=== PATIENT | female | born 1980 | race Caucasian/White ===

== ENCOUNTER 2021-06-08 12:06 | Inpatient (IN) | payer OTHER ==
[2021-06-08 16:30] VITALS: BMI 30.2
[2021-06-08] MEDS ORDERED: MAGNESIUM CITRATE 300 ML BOTTLE PO PRN (16:57)
[2021-06-08] MEDS ORDERED: MENTHOL/PHENOL 1 EACH UD MM PRN (16:57)
[2021-06-08] MEDS ORDERED: BISMUTH SUBSALICYLATE 524 MG/30 ML PO PRN (16:57)
[2021-06-08] MEDS ORDERED: IBUPROFEN 400 MG TABLET (FP) PO PRN (16:57)
[2021-06-08] MEDS ORDERED: MAG HYDROX/AL HYDROX/SIMETH 30 ML UNIT-DOSE CUP PO PRN (16:57)
[2021-06-08] MEDS ORDERED: ACETAMINOPHEN 325 MG TABLET (FP) PO PRN ×2 (16:57)
[2021-06-08] MEDS ORDERED: NALOXONE (NARCAN) HCL 4 MG/0.1 ML SPRAY NS PRN (16:57)
[2021-06-08] MEDS ORDERED: methaDONE HCL 10 MG TABLET (FOR DETOX USE ONLY) PO ONE (16:57)
[2021-06-08] MEDS ORDERED: MAGNESIUM HYDROX 2400MG/30ML ORAL SUSPENSION 30 ML CUP PO PRN (16:57)
[2021-06-08] MEDS ORDERED: NICOTINE 10 MG CARTRIDGE (INHALER) IH PRN (16:57)
[2021-06-08] MEDS ORDERED: methaDONE HCL 10 MG TABLET (FOR DETOX USE ONLY) ONE (18:18)
[2021-06-08] MEDS ORDERED: cloNIDine HCL 0.1 MG TABLET ONE (20:59)
[2021-06-08] MEDS: cloNIDine HCL 0.1 MG TABLET PO PRN (21:00)
[2021-06-08] MEDS: NICOTINE POLACRILEX 2 MG GUM BUC PRN (21:03)
[2021-06-08] MEDS ORDERED: MELATONIN 5 MG TABLETS PO SCH (22:00)
[2021-06-08] MEDS: THIAMINE HCL 100 MG TABLET (FP) PO SCH (23:37)
[2021-06-09] MEDS ORDERED: methaDONE HCL 10 MG TABLET (FOR DETOX USE ONLY) ONE (11:16)
[2021-06-09] MEDS: PRENATAL VITAMINS W/ FOLIC ACID TABLET (FP) PO SCH (11:18)
[2021-06-09] MEDS: METHOCARBAMOL 500 MG TABLET PO PRN ×2 (13:58→22:34)
[2021-06-09] MEDS: cloNIDine HCL 0.1 MG TABLET PO PRN ×3 (13:58→22:34)
[2021-06-09] MEDS: FLUoxetine HCL 20 MG CAPSULE PO SCH (14:22)
[2021-06-09] MEDS: lamoTRIgine 100 MG TABLET PO SCH (14:29)
[2021-06-09] MEDS: NICOTINE POLACRILEX 2 MG GUM BUC PRN (17:44)
[2021-06-09] MEDS: CLINDAMYCIN HCL 150 MG CAPSULE (FP) PO SCH ×2 (17:44→23:01)
[2021-06-09] MEDS: THIAMINE HCL 100 MG TABLET (FP) PO SCH (22:34)
[2021-06-09] MEDS: MELATONIN 5 MG TABLETS PO SCH (22:35)
[2021-06-10] MEDS: CLINDAMYCIN HCL 150 MG CAPSULE (FP) PO SCH ×4 (06:15→23:15)
[2021-06-10] MEDS: cloNIDine HCL 0.1 MG TABLET PO PRN ×3 (06:19→19:22)
[2021-06-10] MEDS ORDERED: methaDONE HCL 10 MG TABLET (FOR DETOX USE ONLY) PO ONE (10:00)
[2021-06-10 10:32] LABS: HEMATOCRIT 30.6 % (32.4-45.2); HEMOGLOBIN 10.1 GM/dL (10.7-15.3); MCH 26.1 pg (25.7-33.7); MCHC 32.9 g/dl (32.0-36.0); MEAN CELL VOLUME 79.4 fl (80-96); MEAN PLT VOLUME 8.4 fl (7.5-11.1); PLATELET COUNT 221 10^3/uL (134-434); RBC 3.86 M/mm3 (3.60-5.2); RDW 18.5 % (11.6-15.6); WHITE BLOOD COUNT 4.1 K/mm3 (4.0-10.0)
[2021-06-10 10:46] LABS: BLOOD UREA NITROGEN 13.4 mg/dL (7-18)
[2021-06-10] MEDS: PRENATAL VITAMINS W/ FOLIC ACID TABLET (FP) PO SCH (10:47)
[2021-06-10] MEDS: lamoTRIgine 100 MG TABLET PO SCH ×2 (10:48)
[2021-06-10] MEDS: FLUoxetine HCL 20 MG CAPSULE PO SCH (10:48)
[2021-06-10 10:49] LABS: ALBUMIN 3.1 g/dl (3.4-5.0)
[2021-06-10 10:52] LABS: CREATININE 0.7 mg/dL (0.55-1.3)
[2021-06-10 10:53] LABS: BILIRUBIN,TOTAL 0.3 mg/dL (0.2-1)
[2021-06-10] MEDS: NICOTINE POLACRILEX 2 MG GUM BUC PRN ×2 (13:47→19:22)
[2021-06-10] MEDS: THIAMINE HCL 100 MG TABLET (FP) PO SCH (23:15)
[2021-06-10] MEDS: MELATONIN 5 MG TABLETS PO SCH (23:15)
[2021-06-11] MEDS ORDERED: hydrOXYzine PAMOATE 25 MG CAPSULE (FP) PO ONE (02:05)
[2021-06-11] MEDS: CLINDAMYCIN HCL 150 MG CAPSULE (FP) PO SCH ×3 (06:46→16:59)
[2021-06-11] MEDS: METHOCARBAMOL 500 MG TABLET PO PRN (06:47)
[2021-06-11] MEDS ORDERED: methaDONE HCL 10 MG TABLET (FOR DETOX USE ONLY) ONE (09:12)
[2021-06-11] MEDS: PRENATAL VITAMINS W/ FOLIC ACID TABLET (FP) PO SCH (09:28)
[2021-06-11] MEDS: FLUoxetine HCL 20 MG CAPSULE PO SCH (09:29)
[2021-06-11] MEDS: lamoTRIgine 100 MG TABLET PO SCH (09:29)
[2021-06-11] MEDS: diazePAM 5 MG TABLET PO PRN ×3 (11:35→22:33)
[2021-06-11] MEDS ORDERED: cloNIDine HCL 0.1 MG TABLET PO PRN (18:41)
[2021-06-11] MEDS: MELATONIN 5 MG TABLETS PO SCH (22:33)
[2021-06-11] MEDS: THIAMINE HCL 100 MG TABLET (FP) PO SCH (22:33)
[2021-06-12] MEDS: CLINDAMYCIN HCL 150 MG CAPSULE (FP) PO SCH ×3 (01:28→11:52)
[2021-06-12] MEDS: METHOCARBAMOL 500 MG TABLET PO PRN ×2 (05:49→17:14)
[2021-06-12] MEDS ORDERED: methaDONE HCL 10 MG TABLET (FOR DETOX USE ONLY) PO ONE (10:00)
[2021-06-12] MEDS: PRENATAL VITAMINS W/ FOLIC ACID TABLET (FP) PO SCH (10:25)
[2021-06-12] MEDS: FLUoxetine HCL 20 MG CAPSULE PO SCH (10:26)
[2021-06-12] MEDS: lamoTRIgine 100 MG TABLET PO SCH (10:27)
[2021-06-12] MEDS ORDERED: JANSSEN COVID-19 VAC,AD26/PF 0.5 ML IM ONE (11:00)
[2021-06-12] MEDS: cloNIDine HCL 0.1 MG TABLET PO PRN ×2 (12:48→22:03)
[2021-06-12] MEDS: NICOTINE POLACRILEX 2 MG GUM BUC PRN ×2 (12:49→16:48)
[2021-06-12] MEDS: THIAMINE HCL 100 MG TABLET (FP) PO SCH (22:03)
[2021-06-12] MEDS: MELATONIN 5 MG TABLETS PO SCH (22:03)
[2021-06-13 09:29] VITALS: BP 131/66; PULSE 116; TEMP 97.3
[2021-06-13] MEDS ORDERED: cloNIDine HCL 0.1 MG TABLET PO ONE (09:45)
[2021-06-13] MEDS: METHOCARBAMOL 500 MG TABLET PO PRN (09:47)
[2021-06-13] MEDS: FLUoxetine HCL 20 MG CAPSULE PO SCH (09:47)
[2021-06-13] MEDS: lamoTRIgine 100 MG TABLET PO SCH (09:47)
[2021-06-13] MEDS: PRENATAL VITAMINS W/ FOLIC ACID TABLET (FP) PO SCH (09:48)
== END 2021-06-13 12:23 | disposition other institution (70) | DRG 897 ==
LOC: YASAS 12:06 → Y6N 06-09 11:44
PROVIDERS: ADMIT Allergy & Immunology; ATTEND Allergy & Immunology
PROC: HZ2ZZZZ Detoxification Services for Substance Abuse Treatment (ICD-10-PCS; principal; 2021-06-09)
DX: F11.23 Opioid dependence with withdrawal (principal); F14.20 Cocaine dependence, uncomplicated; F19.282 Other psychoactive substance dependence with psychoactive substance-induced sleep disorder; F17.210 Nicotine dependence, cigarettes, uncomplicated; F60.9 Personality disorder, unspecified; F90.9 Attention-deficit hyperactivity disorder, unspecified type; M54.89 Other dorsalgia; G89.29 Other chronic pain; Z87.891 Personal history of nicotine dependence
CPT/HCPCS: 0031A; 36415; 80053; 81025; 85027; 86780; 91303; 93005; 93010; C9803; J0735; U0003; U0005

== ENCOUNTER 2021-06-13 12:29 | Inpatient (IN) | payer OTHER ==
[2021-06-13] MEDS ORDERED: LOPERAMIDE HCL 2 MG CAPSULE PO PRN (13:25)
[2021-06-13] MEDS ORDERED: MAGNESIUM HYDROX 2400MG/30ML ORAL SUSPENSION 30 ML CUP PO PRN (13:25)
[2021-06-13] MEDS ORDERED: MAGNESIUM CITRATE 300 ML BOTTLE PO PRN (13:25)
[2021-06-13] MEDS ORDERED: MAG HYDROX/AL HYDROX/SIMETH 30 ML UNIT-DOSE CUP PO PRN (13:25)
[2021-06-13] MEDS ORDERED: P-EPHED 60MG/TRIPROLIDI 2.5MG TABLET PO PRN (13:25)
[2021-06-13] MEDS ORDERED: guaiFENesin 200 MG/10 ML 10 ML UNIT-DOSE CUPS PO PRN (13:25)
[2021-06-13] MEDS ORDERED: MENTHOL/PHENOL 1 EACH UD MM PRN (13:25)
[2021-06-13] MEDS: ACETAMINOPHEN 325 MG TABLET (FP) PO PRN (14:49)
[2021-06-13] MEDS: hydrOXYzine PAMOATE 25 MG CAPSULE (FP) PO PRN ×2 (14:49→20:34)
[2021-06-13] MEDS: METHOCARBAMOL 500 MG TABLET PO PRN (14:49)
[2021-06-13] MEDS ORDERED: ONDANSETRON *ODT* 4 MG TABLET SL PRN (15:17)
[2021-06-13] MEDS: cloNIDine HCL 0.1 MG TABLET PO PRN ×2 (17:15→22:13)
[2021-06-13] MEDS: NICOTINE 10 MG CARTRIDGE (INHALER) IH PRN (17:17)
[2021-06-13] MEDS: IBUPROFEN 400 MG TABLET (FP) PO PRN (20:34)
[2021-06-13] MEDS: THIAMINE HCL 100 MG TABLET (FP) PO SCH (21:07)
[2021-06-13] MEDS ORDERED: MELATONIN 5 MG TABLETS PO SCH (22:00)
[2021-06-14] MEDS: METHOCARBAMOL 500 MG TABLET PO PRN ×3 (06:45→21:37)
[2021-06-14] MEDS: cloNIDine HCL 0.1 MG TABLET PO PRN ×2 (07:09→17:47)
[2021-06-14] MEDS: NICOTINE 7 MG/24 HOURS TOPICAL PATCH TD SCH (10:50)
[2021-06-14] MEDS: PRENATAL VITAMINS W/ FOLIC ACID TABLET (FP) PO SCH (10:50)
[2021-06-14] MEDS: FLUoxetine HCL 20 MG CAPSULE PO SCH (10:51)
[2021-06-14] MEDS: DEXTROAMPHETAMINE/AMPHETAMINE 10 MG CAP.ER.24H PO SCH (10:51)
[2021-06-14] MEDS: lamoTRIgine 100 MG TABLET PO SCH (10:52)
[2021-06-14] MEDS: ACETAMINOPHEN 325 MG TABLET (FP) PO PRN (13:29)
[2021-06-14] MEDS: hydrOXYzine PAMOATE 25 MG CAPSULE (FP) PO PRN ×2 (13:29→21:36)
[2021-06-14 13:38] LABS: HIV INTERPRETATION NEGATIVE (NEGATIVE)
[2021-06-14] MEDS: SUVOREXANT 10 MG TABLET PO PRN (21:36)
[2021-06-14] MEDS: THIAMINE HCL 100 MG TABLET (FP) PO SCH (21:37)
[2021-06-15] MEDS ORDERED: cloNIDine HCL 0.1 MG TABLET PO ONE (01:36)
[2021-06-15] MEDS: METHOCARBAMOL 500 MG TABLET PO PRN ×2 (06:45→17:56)
[2021-06-15] MEDS: hydrOXYzine PAMOATE 25 MG CAPSULE (FP) PO PRN ×3 (06:45→21:50)
[2021-06-15] MEDS: PRENATAL VITAMINS W/ FOLIC ACID TABLET (FP) PO SCH (10:07)
[2021-06-15] MEDS: DEXTROAMPHETAMINE/AMPHETAMINE 10 MG CAP.ER.24H PO SCH (10:07)
[2021-06-15] MEDS: lamoTRIgine 100 MG TABLET PO SCH (10:08)
[2021-06-15] MEDS: FLUoxetine HCL 20 MG CAPSULE PO SCH (10:08)
[2021-06-15] MEDS: NICOTINE 7 MG/24 HOURS TOPICAL PATCH TD SCH (10:08)
[2021-06-15] MEDS: cloNIDine HCL 0.1 MG TABLET PO PRN ×2 (10:12→21:49)
[2021-06-15] MEDS: BUPRENORPHINE/NALOXONE 2 MG/0.5 MG FILM PACKET SL SCH (13:12)
[2021-06-15] MEDS: NICOTINE POLACRILEX 2 MG GUM BC PRN (18:25)
[2021-06-15] MEDS: THIAMINE HCL 100 MG TABLET (FP) PO SCH (21:49)
[2021-06-15] MEDS: SUVOREXANT 10 MG TABLET PO PRN (21:52)
[2021-06-16] MEDS: METHOCARBAMOL 500 MG TABLET PO PRN ×2 (06:25→17:47)
[2021-06-16] MEDS: cloNIDine HCL 0.1 MG TABLET PO PRN ×2 (06:25→21:57)
[2021-06-16] MEDS: FLUoxetine HCL 20 MG CAPSULE PO SCH (10:18)
[2021-06-16] MEDS: PRENATAL VITAMINS W/ FOLIC ACID TABLET (FP) PO SCH (10:18)
[2021-06-16] MEDS: NICOTINE 7 MG/24 HOURS TOPICAL PATCH TD SCH (10:19)
[2021-06-16] MEDS: lamoTRIgine 100 MG TABLET PO SCH (10:19)
[2021-06-16] MEDS: DEXTROAMPHETAMINE/AMPHETAMINE 10 MG CAP.ER.24H PO SCH (10:19)
[2021-06-16] MEDS: NICOTINE POLACRILEX 2 MG GUM BC PRN ×2 (10:20→17:48)
[2021-06-16] MEDS: NICOTINE 10 MG CARTRIDGE (INHALER) IH PRN (10:20)
[2021-06-16] MEDS: BUPRENORPHINE/NALOXONE 2 MG/0.5 MG FILM PACKET SL SCH (10:21)
[2021-06-16] MEDS: IBUPROFEN 400 MG TABLET (FP) PO PRN (17:46)
[2021-06-16] MEDS: hydrOXYzine PAMOATE 25 MG CAPSULE (FP) PO PRN ×2 (17:46→21:56)
[2021-06-16] MEDS: THIAMINE HCL 100 MG TABLET (FP) PO SCH (21:56)
[2021-06-16] MEDS: SUVOREXANT 10 MG TABLET PO PRN (21:58)
[2021-06-17] MEDS: METHOCARBAMOL 500 MG TABLET PO PRN ×2 (06:35→21:31)
[2021-06-17] MEDS: cloNIDine HCL 0.1 MG TABLET PO PRN (06:35)
[2021-06-17] MEDS ORDERED: BUPRENORPHINE/NALOXONE 4 MG/1 MG FILM PACKET SL ONE ×2 (10:00→18:00)
[2021-06-17] MEDS: NICOTINE 7 MG/24 HOURS TOPICAL PATCH TD SCH (10:33)
[2021-06-17] MEDS: PRENATAL VITAMINS W/ FOLIC ACID TABLET (FP) PO SCH (10:33)
[2021-06-17] MEDS: DEXTROAMPHETAMINE/AMPHETAMINE 10 MG CAP.ER.24H PO SCH (10:33)
[2021-06-17] MEDS: lamoTRIgine 100 MG TABLET PO SCH (10:33)
[2021-06-17] MEDS: FLUoxetine HCL 20 MG CAPSULE PO SCH (10:33)
[2021-06-17] MEDS: BUPRENORPHINE/NALOXONE 2 MG/0.5 MG FILM PACKET SL SCH (11:00)
[2021-06-17] MEDS: IBUPROFEN 400 MG TABLET (FP) PO PRN (13:29)
[2021-06-17] MEDS: NICOTINE POLACRILEX 2 MG GUM BC PRN (13:30)
[2021-06-17] MEDS: SUVOREXANT 10 MG TABLET PO PRN (21:31)
[2021-06-17] MEDS: hydrOXYzine PAMOATE 25 MG CAPSULE (FP) PO PRN (21:31)
[2021-06-17] MEDS: THIAMINE HCL 100 MG TABLET (FP) PO SCH (21:31)
[2021-06-17] MEDS ORDERED: SUVOREXANT 10 MG TABLET PO PRN (22:00)
[2021-06-18] MEDS: BUPRENORPHINE/NALOXONE 8 MG/2 MG FILM PACKET SL SCH ×2 (06:25→17:25)
[2021-06-18] MEDS: NICOTINE POLACRILEX 2 MG GUM BC PRN (08:32)
[2021-06-18] MEDS: PRENATAL VITAMINS W/ FOLIC ACID TABLET (FP) PO SCH (10:32)
[2021-06-18] MEDS: FLUoxetine HCL 20 MG CAPSULE PO SCH (10:32)
[2021-06-18] MEDS: lamoTRIgine 100 MG TABLET PO SCH (10:33)
[2021-06-18] MEDS: NICOTINE 7 MG/24 HOURS TOPICAL PATCH TD SCH (10:33)
[2021-06-18] MEDS: DEXTROAMPHETAMINE/AMPHETAMINE 10 MG CAP.ER.24H PO SCH (10:33)
[2021-06-18] MEDS: NICOTINE POLACRILEX 4 MG GUM BUC PRN ×2 (11:07→21:28)
[2021-06-18] MEDS: hydrOXYzine PAMOATE 25 MG CAPSULE (FP) PO PRN (12:12)
[2021-06-18] MEDS: cloNIDine HCL 0.1 MG TABLET PO PRN (21:25)
[2021-06-18] MEDS: THIAMINE HCL 100 MG TABLET (FP) PO SCH (21:25)
[2021-06-18] MEDS: SUVOREXANT 10 MG TABLET PO PRN (21:25)
[2021-06-18] MEDS: METHOCARBAMOL 500 MG TABLET PO PRN (21:25)
[2021-06-19] MEDS: BUPRENORPHINE/NALOXONE 8 MG/2 MG FILM PACKET SL SCH ×2 (06:21→18:04)
[2021-06-19] MEDS: PRENATAL VITAMINS W/ FOLIC ACID TABLET (FP) PO SCH (09:52)
[2021-06-19] MEDS: NICOTINE 7 MG/24 HOURS TOPICAL PATCH TD SCH (09:52)
[2021-06-19] MEDS: FLUoxetine HCL 20 MG CAPSULE PO SCH (09:53)
[2021-06-19] MEDS: lamoTRIgine 100 MG TABLET PO SCH (09:53)
[2021-06-19] MEDS: NICOTINE POLACRILEX 4 MG GUM BUC PRN (09:54)
[2021-06-19] MEDS: DEXTROAMPHETAMINE/AMPHETAMINE 10 MG CAP.ER.24H PO SCH (09:54)
[2021-06-19] MEDS: hydrOXYzine PAMOATE 25 MG CAPSULE (FP) PO PRN ×2 (13:10→21:48)
[2021-06-19] MEDS: METHOCARBAMOL 500 MG TABLET PO PRN (21:48)
[2021-06-19] MEDS: THIAMINE HCL 100 MG TABLET (FP) PO SCH (21:48)
[2021-06-20] MEDS: BUPRENORPHINE/NALOXONE 8 MG/2 MG FILM PACKET SL SCH ×2 (06:16→20:10)
[2021-06-20] MEDS: lamoTRIgine 100 MG TABLET PO SCH (10:35)
[2021-06-20] MEDS: DEXTROAMPHETAMINE/AMPHETAMINE 10 MG CAP.ER.24H PO SCH (10:35)
[2021-06-20] MEDS: PRENATAL VITAMINS W/ FOLIC ACID TABLET (FP) PO SCH (10:35)
[2021-06-20] MEDS: NICOTINE 7 MG/24 HOURS TOPICAL PATCH TD SCH (10:35)
[2021-06-20] MEDS: FLUoxetine HCL 20 MG CAPSULE PO SCH (10:35)
[2021-06-20] MEDS: NICOTINE POLACRILEX 4 MG GUM BUC PRN (10:36)
[2021-06-20] MEDS: IBUPROFEN 400 MG TABLET (FP) PO PRN (10:36)
[2021-06-20] MEDS: ACETAMINOPHEN 325 MG TABLET (FP) PO PRN (20:09)
[2021-06-20] MEDS: SUVOREXANT 10 MG TABLET PO PRN (21:25)
[2021-06-20] MEDS: METHOCARBAMOL 500 MG TABLET PO PRN (21:26)
[2021-06-20] MEDS: hydrOXYzine PAMOATE 25 MG CAPSULE (FP) PO PRN (21:26)
[2021-06-20] MEDS: THIAMINE HCL 100 MG TABLET (FP) PO SCH (21:26)
[2021-06-21] MEDS: BUPRENORPHINE/NALOXONE 8 MG/2 MG FILM PACKET SL SCH ×2 (06:06→20:21)
[2021-06-21] MEDS: NICOTINE 7 MG/24 HOURS TOPICAL PATCH TD SCH (10:15)
[2021-06-21] MEDS: PRENATAL VITAMINS W/ FOLIC ACID TABLET (FP) PO SCH (10:15)
[2021-06-21] MEDS: lamoTRIgine 100 MG TABLET PO SCH (10:16)
[2021-06-21] MEDS: NICOTINE POLACRILEX 4 MG GUM BUC PRN (10:16)
[2021-06-21] MEDS: FLUoxetine HCL 20 MG CAPSULE PO SCH (10:16)
[2021-06-21] MEDS: DEXTROAMPHETAMINE/AMPHETAMINE 10 MG CAP.ER.24H PO SCH (10:47)
[2021-06-21] MEDS: METHOCARBAMOL 500 MG TABLET PO PRN (18:40)
[2021-06-21] MEDS: IBUPROFEN 400 MG TABLET (FP) PO PRN (18:40)
[2021-06-21] MEDS: SUVOREXANT 10 MG TABLET PO PRN (21:38)
[2021-06-21] MEDS: THIAMINE HCL 100 MG TABLET (FP) PO SCH (21:39)
[2021-06-22] MEDS: BUPRENORPHINE/NALOXONE 8 MG/2 MG FILM PACKET SL SCH ×2 (06:34→19:43)
[2021-06-22] MEDS: PRENATAL VITAMINS W/ FOLIC ACID TABLET (FP) PO SCH (10:04)
[2021-06-22] MEDS: FLUoxetine HCL 20 MG CAPSULE PO SCH (10:04)
[2021-06-22] MEDS: NICOTINE 7 MG/24 HOURS TOPICAL PATCH TD SCH (10:04)
[2021-06-22] MEDS: DEXTROAMPHETAMINE/AMPHETAMINE 10 MG CAP.ER.24H PO SCH (10:04)
[2021-06-22] MEDS: lamoTRIgine 100 MG TABLET PO SCH (10:04)
[2021-06-22] MEDS: METHOCARBAMOL 500 MG TABLET PO PRN ×2 (12:22→21:47)
[2021-06-22] MEDS: IBUPROFEN 400 MG TABLET (FP) PO PRN (12:22)
[2021-06-22] MEDS: SUVOREXANT 10 MG TABLET PO PRN (21:46)
[2021-06-22] MEDS: hydrOXYzine PAMOATE 25 MG CAPSULE (FP) PO PRN (21:47)
[2021-06-22] MEDS: THIAMINE HCL 100 MG TABLET (FP) PO SCH (21:47)
[2021-06-22] MEDS: NICOTINE POLACRILEX 4 MG GUM BUC PRN (21:48)
[2021-06-23] MEDS: BUPRENORPHINE/NALOXONE 8 MG/2 MG FILM PACKET SL SCH ×2 (06:09→20:02)
[2021-06-23] MEDS: FLUoxetine HCL 20 MG CAPSULE PO SCH (10:18)
[2021-06-23] MEDS: DEXTROAMPHETAMINE/AMPHETAMINE 10 MG CAP.ER.24H PO SCH (10:18)
[2021-06-23] MEDS: lamoTRIgine 100 MG TABLET PO SCH (10:18)
[2021-06-23] MEDS: PRENATAL VITAMINS W/ FOLIC ACID TABLET (FP) PO SCH (10:18)
[2021-06-23] MEDS: IBUPROFEN 400 MG TABLET (FP) PO PRN (10:19)
[2021-06-23] MEDS: METHOCARBAMOL 500 MG TABLET PO PRN ×2 (10:20→21:48)
[2021-06-23] MEDS: NICOTINE 7 MG/24 HOURS TOPICAL PATCH TD SCH (10:20)
[2021-06-23] MEDS: LIDOCAINE 5% TOPICAL PATCH TP SCH (12:21)
[2021-06-23] MEDS: THIAMINE HCL 100 MG TABLET (FP) PO SCH (21:48)
[2021-06-23] MEDS: SUVOREXANT 10 MG TABLET PO PRN (21:48)
[2021-06-23] MEDS: hydrOXYzine PAMOATE 25 MG CAPSULE (FP) PO PRN (21:49)
[2021-06-23] MEDS ORDERED: SUVOREXANT 10 MG TABLET PO PRN (22:00)
[2021-06-23] MEDS ORDERED: LIDOCAINE PATCH REMOVAL MC SCH (22:00)
[2021-06-24] MEDS: IBUPROFEN 400 MG TABLET (FP) PO PRN (01:13)
[2021-06-24] MEDS: BUPRENORPHINE/NALOXONE 8 MG/2 MG FILM PACKET SL SCH (06:24)
[2021-06-24 06:45] VITALS: BP 102/62; PULSE 78; TEMP 97.1
[2021-06-24] MEDS: METHOCARBAMOL 500 MG TABLET PO PRN (07:15)
[2021-06-24] MEDS: NICOTINE POLACRILEX 4 MG GUM BUC PRN (07:16)
[2021-06-24] MEDS: FLUoxetine HCL 20 MG CAPSULE PO SCH (09:08)
[2021-06-24] MEDS: lamoTRIgine 100 MG TABLET PO SCH (09:08)
[2021-06-24] MEDS: DEXTROAMPHETAMINE/AMPHETAMINE 10 MG CAP.ER.24H PO SCH (09:08)
[2021-06-24] MEDS: PRENATAL VITAMINS W/ FOLIC ACID TABLET (FP) PO SCH (09:08)
[2021-06-24] MEDS: LIDOCAINE 5% TOPICAL PATCH TP SCH (09:09)
[2021-06-24] MEDS: NICOTINE 7 MG/24 HOURS TOPICAL PATCH TD SCH (09:09)
== END 2021-06-24 09:15 | disposition home or self-care (01) | DRG 895 ==
LOC: YASAS 12:29 → Y5N 12:30
PROVIDERS: ADMIT Allergy & Immunology; ATTEND Allergy & Immunology
PROC: HZ42ZZZ Group Counseling for Substance Abuse Treatment, Cognitive-Behavioral (ICD-10-PCS; principal; 2021-06-13)
DX: F11.20 Opioid dependence, uncomplicated (principal); F14.20 Cocaine dependence, uncomplicated; F17.210 Nicotine dependence, cigarettes, uncomplicated; F90.9 Attention-deficit hyperactivity disorder, unspecified type; F31.9 Bipolar disorder, unspecified; K21.9 Gastro-esophageal reflux disease without esophagitis; M54.50 Low back pain, unspecified; G89.29 Other chronic pain; Z56.0 Unemployment, unspecified
CPT/HCPCS: 36415; 87389; J0735; Q0162

== ENCOUNTER 2022-02-13 13:46 | Inpatient (IN) | payer OTHER ==
[2022-02-13] MEDS ORDERED: BENZOCAINE/MENTHOL (CHLORASEPTIC ) LOZENGE MM PRN (16:27)
[2022-02-13] MEDS ORDERED: MAG HYDROX/AL HYDROX/SIMETH 30 ML UNIT-DOSE CUP PO PRN (16:27)
[2022-02-13] MEDS ORDERED: MAGNESIUM HYDROX 2400MG/30ML ORAL SUSPENSION 30 ML CUP PO PRN (16:27)
[2022-02-13] MEDS ORDERED: NICOTINE 10 MG CARTRIDGE (INHALER) IH PRN (16:27)
[2022-02-13] MEDS ORDERED: ONDANSETRON *ODT* 4 MG TABLET SL PRN (16:27)
[2022-02-13] MEDS ORDERED: cloNIDine HCL 0.1 MG TABLET PO ONE (16:27)
[2022-02-13] MEDS ORDERED: NALOXONE HCL (KLOXXADO) 8 MG SPRAY NS PRN (16:27)
[2022-02-13] MEDS ORDERED: LOPERAMIDE HCL 2 MG CAPSULE PO PRN (16:27)
[2022-02-13] MEDS ORDERED: IBUPROFEN 400 MG TABLET (FP) PO PRN (16:27)
[2022-02-13] MEDS ORDERED: DICYCLOMINE HCL 10 MG CAPSULE PO PRN (16:27)
[2022-02-13] MEDS ORDERED: ACETAMINOPHEN 325 MG TABLET (FP) PO PRN ×2 (16:27)
[2022-02-13] MEDS ORDERED: BUPRENORPHINE HCL 150 MCG, BUPRENORPHINE HCL 75 MCG BC PRN (16:27)
[2022-02-13] MEDS ORDERED: MAGNESIUM CITRATE 300 ML BOTTLE PO PRN (16:27)
[2022-02-13] MEDS ORDERED: BISMUTH SUBSALICYLATE 524 MG/30 ML PO PRN (16:27)
[2022-02-13] MEDS ORDERED: BUPRENORPHINE HCL 150 MCG, BUPRENORPHINE HCL 75 MCG BC ONE (16:27)
[2022-02-13] MEDS ORDERED: BUPRENORPHINE HCL 150 MCG FILM BC ONE (21:19)
[2022-02-13] MEDS ORDERED: BUPRENORPHINE HCL 75 MCG FILM BC ONE (21:20)
[2022-02-13] MEDS ORDERED: cloNIDine HCL 0.1 MG TABLET ONE (21:20)
[2022-02-13] MEDS: hydrOXYzine PAMOATE 25 MG CAPSULE (FP) PO SCH ×2 (21:43→21:44)
[2022-02-13] MEDS ORDERED: hydrOXYzine PAMOATE 25 MG CAPSULE (FP) PO ONE (21:44)
[2022-02-13] MEDS: MELATONIN 5 MG TABLETS PO SCH (21:44)
[2022-02-13] MEDS: THIAMINE HCL 100 MG TABLET (FP) PO SCH (21:44)
[2022-02-14] MEDS ORDERED: BUPRENORPHINE HCL 150 MCG, BUPRENORPHINE HCL 75 MCG BC PRN
[2022-02-14] MEDS ORDERED: BUPRENORPHINE HCL 150 MCG FILM BC ONE ×3 (05:36→18:50)
[2022-02-14] MEDS ORDERED: BUPRENORPHINE HCL 75 MCG FILM BC ONE ×3 (05:37→18:50)
[2022-02-14] MEDS ORDERED: hydrOXYzine PAMOATE 25 MG CAPSULE (FP) PO ONE ×2 (05:38→09:56)
[2022-02-14] MEDS: BUPRENORPHINE HCL 150 MCG, BUPRENORPHINE HCL 75 MCG BC SCH ×2 (05:56→19:01)
[2022-02-14] MEDS: hydrOXYzine PAMOATE 25 MG CAPSULE (FP) PO SCH ×5 (05:56→23:01)
[2022-02-14] MEDS ORDERED: diazePAM 5 MG TABLET ONE (07:44)
[2022-02-14] MEDS: diazePAM 5 MG TABLET PO PRN ×3 (07:47→23:00)
[2022-02-14 11:34] LABS: HEMATOCRIT 31.6 % (32.4-45.2); HEMOGLOBIN 10.2 GM/dL (10.7-15.3); MCH 26.8 pg (25.7-33.7); MCHC 32.3 g/dl (32.0-36.0); MEAN PLT VOLUME 8.4 fl (7.5-11.1); PLATELET COUNT 218 10^3/uL (134-434); RDW 16.7 % (11.6-15.6)
[2022-02-14 12:03] LABS: ALBUMIN 3.2 g/dl (3.4-5.0); BLOOD UREA NITROGEN 13.7 mg/dL (7-18)
[2022-02-14 12:05] LABS: CREATININE 0.7 mg/dL (0.55-1.3)
[2022-02-14 12:06] LABS: BILIRUBIN,TOTAL 0.2 mg/dL (0.2-1); TOT PROT 6.7 g/dl (6.4-8.2)
[2022-02-14] MEDS: PRENATAL VITAMINS W/ FOLIC ACID TABLET (FP) PO SCH (12:57)
[2022-02-14 12:58] VITALS: BMI 28.3
[2022-02-14] MEDS: METHOCARBAMOL 500 MG TABLET PO PRN (13:32)
[2022-02-14] MEDS: IBUPROFEN 600 MG TABLET (FP) PO PRN (23:01)
[2022-02-14] MEDS: THIAMINE HCL 100 MG TABLET (FP) PO SCH (23:01)
[2022-02-14] MEDS: MELATONIN 5 MG TABLETS PO SCH (23:03)
[2022-02-15] MEDS: hydrOXYzine PAMOATE 25 MG CAPSULE (FP) PO SCH ×5 (05:46→22:40)
[2022-02-15] MEDS: BUPRENORPHINE HCL 450 MCG FILM BC SCH ×2 (05:47→18:20)
[2022-02-15] MEDS: diazePAM 5 MG TABLET PO PRN (10:23)
[2022-02-15] MEDS: METHOCARBAMOL 500 MG TABLET PO PRN (10:23)
[2022-02-15] MEDS: PRENATAL VITAMINS W/ FOLIC ACID TABLET (FP) PO SCH (10:31)
[2022-02-15] MEDS: cloNIDine HCL 0.1 MG TABLET PO PRN (13:07)
[2022-02-15] MEDS: THIAMINE HCL 100 MG TABLET (FP) PO SCH (22:40)
[2022-02-15] MEDS: MELATONIN 5 MG TABLETS PO SCH (22:40)
[2022-02-16] MEDS: hydrOXYzine PAMOATE 25 MG CAPSULE (FP) PO SCH ×5 (06:30→22:42)
[2022-02-16] MEDS: BUPRENORPHINE/NALOXONE 4 MG/1 MG FILM PACKET SL SCH ×2 (06:30→17:15)
[2022-02-16] MEDS: METHOCARBAMOL 500 MG TABLET PO PRN ×3 (07:00→18:52)
[2022-02-16] MEDS: cloNIDine HCL 0.1 MG TABLET PO PRN ×2 (10:28→17:15)
[2022-02-16] MEDS: PRENATAL VITAMINS W/ FOLIC ACID TABLET (FP) PO SCH (10:28)
[2022-02-16] MEDS: IBUPROFEN 600 MG TABLET (FP) PO PRN (18:51)
[2022-02-16] MEDS: THIAMINE HCL 100 MG TABLET (FP) PO SCH (22:42)
[2022-02-16] MEDS: MELATONIN 5 MG TABLETS PO SCH (22:42)
[2022-02-17] MEDS ORDERED: BUPRENORPHINE/NALOXONE 8 MG/2 MG FILM PACKET SL ONE (06:00)
[2022-02-17] MEDS: hydrOXYzine PAMOATE 25 MG CAPSULE (FP) PO SCH ×5 (06:11→22:10)
[2022-02-17] MEDS: PRENATAL VITAMINS W/ FOLIC ACID TABLET (FP) PO SCH (10:31)
[2022-02-17] MEDS: FLUoxetine HCL 20 MG CAPSULE PO SCH (14:26)
[2022-02-17] MEDS: METHOCARBAMOL 500 MG TABLET PO PRN (17:45)
[2022-02-17] MEDS ORDERED: hydrOXYzine PAMOATE 50 MG CAPSULE (FP) PO ONE (18:00)
[2022-02-17] MEDS ORDERED: diazePAM 5 MG TABLET PO ONE (19:37)
[2022-02-17 20:57] VITALS: TEMP 97.1
[2022-02-17] MEDS: THIAMINE HCL 100 MG TABLET (FP) PO SCH (22:10)
[2022-02-17] MEDS: MELATONIN 5 MG TABLETS PO SCH (22:10)
[2022-02-17] MEDS: IBUPROFEN 600 MG TABLET (FP) PO PRN (22:11)
[2022-02-18] MEDS: hydrOXYzine PAMOATE 25 MG CAPSULE (FP) PO SCH ×2 (06:21→10:06)
[2022-02-18] MEDS: METHOCARBAMOL 500 MG TABLET PO PRN (06:24)
[2022-02-18] MEDS: IBUPROFEN 600 MG TABLET (FP) PO PRN (06:25)
[2022-02-18] MEDS ORDERED: BUPRENORPHINE/NALOXONE 8 MG/2 MG FILM PACKET SL ONE (07:45)
[2022-02-18 08:48] VITALS: BP 109/64; PULSE 83
[2022-02-18] MEDS: PRENATAL VITAMINS W/ FOLIC ACID TABLET (FP) PO SCH (10:04)
[2022-02-18] MEDS: FLUoxetine HCL 20 MG CAPSULE PO SCH (10:06)
== END 2022-02-18 11:48 | disposition home or self-care (01) | DRG 897 ==
LOC: YASAS 13:46 → Y3N 02-14 12:11
PROVIDERS: ADMIT Allergy & Immunology; ATTEND Surgery
PROC: HZ2ZZZZ Detoxification Services for Substance Abuse Treatment (ICD-10-PCS; principal; 2022-02-14)
DX: F11.23 Opioid dependence with withdrawal (principal); F14.20 Cocaine dependence, uncomplicated; F13.10 Sedative, hypnotic or anxiolytic abuse, uncomplicated; F17.210 Nicotine dependence, cigarettes, uncomplicated; F31.9 Bipolar disorder, unspecified; F60.3 Borderline personality disorder; F90.9 Attention-deficit hyperactivity disorder, unspecified type; M54.50 Low back pain, unspecified; G89.29 Other chronic pain; Z56.0 Unemployment, unspecified; Z59.00 Homelessness unspecified
CPT/HCPCS: 36415; 80053; 85027; 86780; C9803-CS; J0735; U0003; U0005